=== PATIENT | female | born 1955 | race Caucasian/White ===

== ENCOUNTER → 2017-08-21 | Outpatient (CLI) | payer OTHER ==
--- NOTE | 2017-08-21 14:41 | RADIOLOGY IMAGING REPORT ---
[place] [facility] [place] NAME: Alondra Clark : 1955 MR: [id number] V: [id number] EXAM DATE: ORDERING PHYSICIAN: JOSE A KUMAR TECHNOLOGIST: [place] [facility] [place] Alondra Clark : 1955 Visit/Account:[id number] Date of Sevice: 08/21/2017 Bilateral renal ultrasound HISTORY: Kidney stones COMPARISON: None. FINDINGS: Right kidney- 10.1 x 4.1 x 4.6 cm, normal parenchymal thickness and echogenicity. No concerning emir s. No calculi. No hydronephrosis. Normal vascularity. Left kidney- 10.6 x 4.6 x 5.6 cm, normal parenchymal thickness and echogenicity. No concerning emir s. No calculi. No hydronephrosis. Normal vascularity. Bladder: Unremarkable. Prevoid volume of 787 mL. Post void volume of 292 mL. Bilateral ureteral je ts visualized. Abdominal aorta and IVC: Patent by Doppler ultrasound. Other findings: None significant IMPRESSION: 1. Significant post void residual volume within the urinary bladder measuring 292 mL. 2. Normal kidneys without shadowing calculus or hydronephrosis. Report Dictated By: Tommie Santiago MD at 08/21/2017 2:29 PM Report E-Signed By: Tommie Santiago MD at 08/21/2017 2:37 PM WSN:[email or web address]
--- NOTE | 2017-08-26 09:31 | RADIOLOGY IMAGING REPORT ---
FACILITY: [facility] - [place] PATIENT NAME: CHAPARRITA SOLANO : [id number] MR: [id number] V: [id number] EXAM DATE: [id number] ORDERING PHYSICIAN: JOSE A KUMAR TECHNOLOGIST: Lorena Walters PROCEDURE:BILATERAL DIGITAL SCREENING MAMMOGRAM WITH CAD AND 3D BREAST TOMOSYNTHESIS. COMPARISON:None. Baseline study INDICATIONS:BASELINE SCREENING FINDINGS: The breasts have scattered fibroglandular parenchymal densities. There are no mammographic findings concerning for malignancy. DIAGNOSTIC CATEGORY 1--NEGATIVE. RECOMMENDATIONS: ROUTINE MAMMOGRAM AND CLINICAL EVALUATION. IMPRESSION: Bi-RADS 1: Negative. RECOMMENDATION: Followup screening mammogram in one year. Dictated by: Ascencion Ferreira on 08/24/2017 at 9:52 Transcribed by: SHELBY on 08/24/2017 at 22:55 Approved by: Kim Vale M.D. on 08/26/2017 at 8:54 [facility]
== END ==
LOC: MAMO 04:24
PROVIDERS: ATTEND Family Medicine
DX: Z12.31 Encounter for screening mammogram for malignant neoplasm of breast (principal); R33.9 Retention of urine, unspecified
CPT/HCPCS: 76705; 77063; 77067

== ENCOUNTER 2017-10-29 08:30 | Emergency (ER) | payer OTHER ==
[2017-10-29] MEDS ORDERED: FAMOTIDINE(*) 20MG/50ML PREMIX 50 ML IVPB ONE (08:35)
[2017-10-29] MEDS ORDERED: diphenhydrAMINE 50 MG/ML VIAL IVP ONE (08:35)
[2017-10-29] MEDS ORDERED: LEVALBUTEROL 1.25 MG/3 ML NEB NEB ONE (08:35)
[2017-10-29] MEDS ORDERED: methylPREDNIS SUCC 125 MG/2ML IVP ONE (08:35)
[2017-10-29] MEDS ORDERED: LEVO75TA68 PO (08:36)
--- NOTE | 2017-10-29 08:49 | ER Report ---
History and Physical Time Seen By MD: 08:46 Hx. of Stated Complaint: RESP DISTRESS FOLLOWING INHALING PAINT FUMES. HPI/ROS CHIEF COMPLAINT: Respiratory distress HISTORY OF PRESENT ILLNESS: Patient is a 62-year-old female with past medical history for reactive airways disease and hypothyroidism who presents to the emergency department after being exposed to paint themes. 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 Inhalation of the pain vapors center and bronchospasm. He called 911 and was brought into the emergency department for a possible allergic reaction respiratory distress. Patient was given 0.3 mg of epinephrine IM which is rapidly improved her symptoms. The patient refused an albuterol nebulizer treatment because she reports allergy to albuterol. She further is refusing Benadryl, Pepcid and steroids. She did agree to a Xopenex nebulizer in the emergency department. Patient states upon arrival she is Jason feeling better from the epinephrine. She denies any chest pain or pressure. She denies fevers or chills she denies abdominal pain. REVIEW OF SYSTEMS: Respiratory: Cough, bronchospasm Cardiovascular: No chest pain, no palpitations. Gastrointestinal: No vomiting, no abdominal pain. Musculoskeletal: No back pain. Allergies: Coded Allergies: albuterol (Verified Allergy, Unknown, 10/29/17) ibuprofen (Verified Allergy, Unknown, 10/29/17) metoclopramide (Verified Allergy, Unknown, 10/29/17) Home Meds Reported Medications Levothyroxine Sodium (SYNTHROID) 75 Mcg Tablet, 75 MCG PO QDAY 10/29/17 Past Medical/Surgical History Hypothyroidism, reactive airways disease Constitutional Vital Sign - Last 24 Hours 10/29/17 10/29/17 10/29/17 08:33 09:00 09:30 Temp 98.2 Pulse 99 87 Resp 26 14 B/P (MAP) 121/68 125/73 (90) Pulse Ox 98 91 O2 Delivery Room Air Physical Exam General Appearance: The patient is alert, has no immediate need for airway protection and no current signs of toxicity. [ ] Eyes: Pupils equal and round no injection. Respiratory: Chest is non tender, lungs are clear to auscultation. Cardiac: regular rate and rhythm [ ] Gastrointestinal: Abdomen is soft and non tender, no masses, bowel sounds normal. Musculoskeletal: Neck: Neck is supple and non tender. Extremities have full range of motion and are non tender. Skin: No rashes or lesions. Medical Decision Making ED Course/Re-evaluation ED Course 10/29/2017 8:48:36 am patient rapidly improving with prior demonstration of epinephrine and current Xopenex nebulizer treatment. Patient has refused all other interventions including IV, Benadryl, Pepcid, steroids. We'll continue to monitor in the emergency department she agrees to the treatment if her symptoms worsen. Re-evaluation 10/29/2017 9:35:12 am Patient remained symptom-free at this time. Is asking if she can be discharged home. Reexam of the lungs reveals no respiratory distress no acute wheezing no rhonchi noted. Decision to Disposition Date: Oct 29, 2017 Decision to Disposition Time: 09:35 Depart Departure Latest Vital Signs Vital Signs Date Time Temp Pulse Resp B/P (MAP) Pulse Ox O2 Delivery O2 Flow Rate FiO2 10/29/17 09:30 87 14 91 10/29/17 09:00 125/73 (90) 10/29/17 08:33 98.2 Room Air Impression: Primary Impression: Allergic reaction to chemical substance Condition: Improved Disposition: HOME OR SELF-CARE Departure Forms: ER Transition Record, Medications Reconciliation, Off Work/ School Form, School or Work Release?: Work Number of days to be released: 1 Patient Portal Information Patient Instructions: General Allergic Reaction (ED) Problem Qualifiers Primary Impression: Allergic reaction to chemical substance Encounter type: initial encounter Injury intent: accidental or unintentional Qualified Codes: T65.91XA - Toxic effect of unspecified substance, accidental (unintentional), initial encounter ELDA MCCABE MD Oct 29, 2017 08:49
[2017-10-29 09:00] VITALS: BP 125/73
== END 2017-10-29 09:45 | disposition home or self-care (01) ==
LOC: ER 08:37
DX: T65.91XA Toxic effect of unspecified substance, accidental (unintentional), initial encounter (principal)
CPT/HCPCS: 99282

== ENCOUNTER → 2017-10-29 | Outpatient (CLI) | payer OTHER ==
[~2017-10-29] MED LIST: LEVO75TA68 PO
== END ==
LOC: AMB 08:12
PROVIDERS: ATTEND Nurse Practitioner
DX: R06.82 Tachypnea, not elsewhere classified (principal); R07.89 Other chest pain
CPT/HCPCS: A0425; A0429

== ENCOUNTER → 2018-09-20 | Outpatient (CLI) | payer OTHER ==
--- NOTE | 2018-09-20 15:41 | RADIOLOGY IMAGING REPORT ---
FACILITY: [facility] PATIENT NAME: Alondra Clark : 1955 MR: [id number] V: [id number] EXAM DATE: ORDERING PHYSICIAN: JOSE A KUMAR TECHNOLOG[place]: [place] [facility] [place]ra [place] : 1955 Visit/Account:[id number] Date of Sevice: 09/20/2018 CHEST PA LAT Indication: Cough for one week. Comparison: None. Findings: Lungs: Clear. Mediastinum/pulmonary vasculature: Heart size and pulmonary vasculature are normal. Bones/soft tissues: Normal. IMPRESSION: Clear lungs. Report Dictated By: Ascencion Torres at 09/20/2018 3:33 PM Report E-Signed By: Ascencion Torres at 09/20/2018 3:34 PM WSN:[email or web address]
== END ==
LOC: RAD 14:59
PROVIDERS: ATTEND Family Medicine
DX: R05 Cough (principal)
CPT/HCPCS: 71046

== ENCOUNTER → 2019-01-07 | Outpatient (CLI) | payer OTHER ==
--- NOTE | 2019-01-07 10:33 | RADIOLOGY IMAGING REPORT ---
FACILITY: [facility] - [place] PATIENT NAME: Alondra Clark : 1955 MR: [id number] V: [id number] EXAM DATE: ORDERING PHYSICIAN: ANUP ANDRADE TECHNOLOGIST: Location: [facility] Patient: Alondra Clark : 1955 Visit/Account:[id number] Date of Sevice: 01/07/2019 THYROID HISTORY: Alysha's, thyroid nodules COMPARISON: None. FINDINGS: SIZE: Normal. Right lobe: 4 x 1.9 x 1.5 cm Left lobe: 3.3 x 0.7 x 1.2 cm Isthmus: 3 mm PARENCHYMA: Homogeneous. NODULES: Right lobe: * There is a 1.3 cm complex cystic and solid well-circumscribed nodule in the superior pole the righ t lobe Left lobe: * There is a 7 mm ovoid relatively well-circumscribed partially calcified nodule in the inferior lef t lobe Isthmus: * None discrete. VASCULARITY: Within normal limits. ADDITIONAL FINDINGS: None. IMPRESSION: 1.3 cm complex cystic and solid well-circumscribed nodule in the superior pole the right lobe 7 mm ovoid relatively well-circumscribed partially calcified nodule in the inferior left lobe REFERENCE: 2015 [place] [employer] Management Guidelines for Adult Patients with Thyroid Nodules and D ifferentiated Thyroid Cancer: The [place] [employer] Guidelines Task Force on Thyroid Nodul es and Differentiated Thyroid Cancer. SONOGRAPHIC PATTERNS: * Benign: Purely cystic nodules (no solid component); estimated risk of malignancy <1 percent; no bi opsy recommended. * Very Low Suspicion: Spongiform or partially cystic nodules without any of the sonographic features described in low, intermediate, or high suspicion patterns; estimated risk of malignancy <3 percent; consider FNA at > 2 cm (Observation without FNA is also a reasonable option). * Low Suspicion: Isoechoic or hyperechoic solid nodule, or partially cystic nodule with eccentric so lid areas, without microcalcification, irregular margin or ETE (extra-thyroidal extension), or taller than wide shape; estimated risk of malignancy 5-10 percent; recommend FNA at >1.5 cm. * Intermediate Suspicion: Hypoechoic solid nodule with smooth margins without microcalcifications, E TE (extra-thyroidal extension), or taller than wide shape; estimated risk of malignancy 10-20 percent ; recommend FNA at > 1 cm. * High Suspicion: Solid hypoechoic nodule or solid hypoechoic component of a partially cystic nodule with one or more of the following features: irregular margins (infiltrative, microlobulated), microc alcifications, taller than wide shape, rim calcifications with small extrusive soft tissue component, evidence of ETE (extra-thyroidal extension); estimated risk of malignancy >70-90 percent; recommend FNA at > 1 cm. NOTES: * Although a sonographically suspicious subcentimeter thyroid nodule without evidence of extrathyroi pascale extension or sonographically suspicious lymph nodes may be observed with close sonographic follow -up rather than pursuing immediate FNA, patient age and preference may modify decision-making. A > 50% interval increase in nodule volume and/or development of new suspicious sonographic features are felt to be a valid reasons for potential re-aspiration of a nodule previously shown to have benig n FNA cytology. Report Dictated By: Kim Vale MD at 01/07/2019 10:26 AM Report E-Signed By: Kim Vale MD at 01/07/2019 10:28 AM WSN:[email or web address]
== END ==
LOC: US 00:55
PROVIDERS: ATTEND Otolaryngology
DX: E04.2 Nontoxic multinodular goiter (principal); E06.3 Autoimmune thyroiditis
CPT/HCPCS: 76536